=== PATIENT | male | born 1960 | race Caucasian/White ===

== ENCOUNTER 2016-05-12 06:13 | Emergency (ER) ==
[2016-05-12] MEDS ORDERED: ASPIRIN PO ONE ×2 (06:25→06:43)
[2016-05-12] MEDS ORDERED: ASPIRIN PO STA (06:26)
--- NOTE | 2016-05-12 06:31 | EKG Report ---
Test Performed on : 05/12/2016 06:21:20 AM Test Reason : CHEST PAIN Blood Pressure : / mmHG Vent. Rate : 090 BPM Atrial Rate : 090 BPM P-R Int : 172 ms QRS Dur : 072 ms QT Int : 374 ms P-R-T Axes : 077 092 080 degrees QTc Int : 457 ms Normal sinus rhythm. Rightward axis Nonspecific ST abnormality Abnormal ECG When compared with ECG of 04-JAN-2016 08:24, Vent. rate has increased BY [address] now depressed in Anterior leads QT has lengthened Unconfirmed Result
[2016-05-12] MEDS ORDERED: ZOFRAN IV ONE (06:43)
[2016-05-12] MEDS ORDERED: DILAUDID IV ONE ×2 (06:43→09:46)
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
[2016-05-12 07:12] LABS: MANUAL DIFF NEEDED? NO
[2016-05-12 07:13] LABS: BASO% 0.2 % (0.0-0.8); EOS# 0.01 X1000 (0.0-0.7); EOS% 0.1 % (0.0-10.0); HEMATOCRIT 39.3 % (42.0-52.0); HEMOGLOBIN 12.4 g/dL (14.0-18.0); IMM GRAN# 0.08 X1000 (0.0-0.04); IMM GRAN% 0.6 % (0.0-0.5); LYMPH# 1.39 X1000 (1.2-3.4); LYMPH% 10.8 % (20.5-51.1); MCH 24.4 PG (27-31); MCHC 31.6 g/dL (33-37); MCV 77.4 FL (81-99); MONO# 0.63 X1000 (0.11-0.59); MONO% 4.9 % (1.7-9.3); NEUT% 83.4 % (42.2-75.2); PLT 242 X1000 (130-400); RBC 5.08 XMIL (4.7-6.1)
[2016-05-12 07:21] LABS: INR 1.7 (0.86-1.15); PROTIME 20.2 Seconds (12.1-15.5)
[2016-05-12 07:41] LABS: AGAP 16; ALKALINE PHOSPHATASE 96 U/L (32-122); BUN 20 mg/dL (8-22); CALCIUM 9.2 mg/dL (8.8-10.2); CHLORIDE 97 mmol/L (98-107); CK PROFILE 53 U/L (24-204); COSMO 277; GOT 16 U/L (10-34); GPT 15 U/L (10-44); MAGNESIUM 1.9 mg/dL (1.5-2.7); POTASSIUM 4.1 mmol/L (3.5-5.1); SODIUM 135 mmol/L (136-145); TCO2 22 mmol/L (25-35); TOTAL PROTEIN 7.2 g/dL (6.3-8.3)
--- NOTE | 2016-05-12 07:47 | EKG Report ---
Test Performed on : 05/12/2016 06:41:12 AM Test Reason : chest pain Blood Pressure : / mmHG Vent. Rate : 079 BPM Atrial Rate : 079 BPM P-R Int : 158 ms QRS Dur : 092 ms QT Int : 366 ms P-R-T Axes : 000 139 140 degrees QTc Int : 419 ms Normal sinus rhythm. Left posterior fascicular block Cannot rule out Inferior infarct , age undetermined Abnormal ECG When compared with ECG of 12-MAY-2016 06:21, Left posterior fascicular block is now present ST no longer elevated in Inferior leads Inverted T waves have replaced nonspecific T wave abnormality in Anterior leads Unconfirmed Result
--- NOTE | 2016-05-12 08:23 | Diag Imaging Result Document ---
PROCEDURE NAME: CHEST-2 VIEWS - 05/12/2016 FRONTAL AND LATERAL CHEST, TWO VIEWS: COMPARISON: Compared to 05/28/2012. FINDINGS: The lungs are well expanded. The heart is not enlarged. The vessels are not distended. Minimal atelectasis in the mid left lung. No consolidation. No pleural effusions. No free air beneath the diaphragm. IMPRESSION: Minimal atelectasis in the mid left lung.
[2016-05-12] MEDS ORDERED: TORADOL IV ONE (08:38)
--- NOTE | 2016-05-12 09:05 | ED EKG INTERP ---
EKG Interpretation - EKG Time of EKG reading by physician:: 06:21 EKG Read and Signed by:: Arturo Miranda EKG Interpretation (*Must complete 3 of following elements*): Abnormal Rate: 90 Rhythm: nsr [place]: right ST Wave: non-specific ST changes - EKG # 2 Time of EKG reading by physician:: 06:41 EKG Read and Signed by:: Arturo Miranda EKG Interpretation (*Must complete 3 of following elements*): Abnormal (cannot rule out inferior infarct age undetermined) Rate: 79 Rhythm: nsr QRS: other (lafb) Attestation - Scribe Verification/Attestation Scribe:: Andre Souza Acting as Scribe for:: Arturo Miranda Scriblisa documention review:: This chart was documented by a scribe and accurately reflects the service the provider performed and the decisions made by the provider.
--- NOTE | 2016-05-12 09:09 | Diag Imaging Result Document ---
PROCEDURE NAME: ANGIOGRAM/PULMONARY ARTERIES - 05/12/2016 CT CHEST WITH INTRAVENOUS CONTRAST: FINDINGS: No pleural effusions. The heart is borderline mildly prominent. No thoracic aortic aneurysm or dissection. There are small mediastinal and hilar lymph nodes. No enlarged lymph nodes. Normal opacification of the pulmonary arteries and their major branches. There are mild emphysematous changes. No consolidation. No bronchiectasis. I do not identify a lung mass. Minimal basilar atelectasis. IMPRESSION: 1. No pulmonary emboli. 2. No pneumonia. 3. Mild cardiomegaly with coronary artery calcifications in the left anterior descending artery. A preliminary report was given at 8:46 a.m.
[2016-05-12] MEDS ORDERED: ZOFRAN ODT PO ONE (09:46)
[2016-05-12 09:59] VITALS: BP 128/75
== END 2016-05-12 09:58 | disposition home or self-care (01) ==
LOC: P.ED 06:13
DX: R07.89 Other chest pain (principal); G89.29 Other chronic pain; F41.9 Anxiety disorder, unspecified; I25.10 Atherosclerotic heart disease of native coronary artery without angina pectoris; I10 Essential (primary) hypertension; E78.5 Hyperlipidemia, unspecified; Z87.442 Personal history of urinary calculi; Z95.5 Presence of coronary angioplasty implant and graft; Z87.891 Personal history of nicotine dependence; R94.31 Abnormal electrocardiogram [ECG] [EKG]; Z79.899 Other long term (current) drug therapy; Z79.01 Long term (current) use of anticoagulants
CPT/HCPCS: 71020; 71275; 80053; 82550; 83735; 83880; 84484; 85025; 85379; 85610; 85730; 93005; 96374; 96375; 96376; J1170; J1885; J2405; Q9967

== ENCOUNTER 2018-09-18 02:30 | Inpatient (IN) ==
--- NOTE | 2018-09-13 14:57 | EKG Report ---
Test Performed on : 09/13/2018 2:29:25 PM Test Reason : PAT Blood Pressure : / mmHG Vent. Rate : 061 BPM Atrial Rate : 061 BPM P-R Int : 188 ms QRS Dur : 100 ms QT Int : 400 ms P-R-T Axes : 070 085 070 degrees QTc Int : 402 ms Normal sinus rhythm. Normal ECG When compared with ECG of 16-FEB-2017 09:13, No significant change was found Confirmed by Edmund Markham MD ([id number]) on 09/15/2018 9:02:08 PM
[2018-09-13 15:09] LABS: URINE SOURCE CLEAN CATCH
[2018-09-13 15:12] LABS: BILIRUBIN URINE NEGATIVE (NEGATIVE); BLOOD URINE NEGATIVE (NEGATIVE); COLOR YELLOW; GLUCOSE URINE >1000 mg/dL (NEGATIVE); KETONE URINE NEGATIVE (NEGATIVE); LEUKOCYTES URINE NEGATIVE (NEGATIVE); NITRITE URINE NEGATIVE (NEGATIVE); PH URINE 5.5; PROTEIN URINE NEGATIVE (NEGATIVE); SP GRAVITY URINE 1.037; TURBIDITY URINE CLEAR (CLEAR); UR EPITHELIAL CELLS <10 /HPF (<10); URINE BACTERIA NEGATIVE /HPF; URINE RBC <10 /HPF (<10); URINE WBC <10 /HPF (<10); UROBILINOGEN URINE NORMAL (NORMAL)
[2018-09-13 15:13] LABS: BASO# 0.05 X1000 (0.0-0.2); BASO% 0.6 % (0.0-0.8); EOS# 0.14 X1000 (0.0-0.7); EOS% 1.5 % (0.0-10.0); HEMATOCRIT 42.8 % (42.0-52.0); HEMOGLOBIN 14.5 g/dL (14.0-18.0); IMM GRAN# 0.13 X1000 (0.0-0.04); IMM GRAN% 1.4 % (0.0-0.5); LYMPH# 1.79 X1000 (1.2-3.4); LYMPH% 19.7 % (20.5-51.1); MCH 27.7 PG (27-31); MCHC 33.9 g/dL (33-37); MCV 81.7 FL (81-99); MONO# 0.92 X1000 (0.11-0.59); MONO% 10.1 % (1.7-9.3); MPV 12.9 FL (7.4-10.4); NEUT# 6.06 X1000 (1.4-6.5); NEUT% 66.7 % (42.2-75.2); PLT 179 X1000 (130-400); RBC 5.24 XMIL (4.7-6.1); RDW 17.1 % (11.5-14.5); WBC 9.09 X1000 (4.8-10.8)
[2018-09-13 15:28] LABS: INR 1.07; PROTIME 14.8 Seconds (11.0-16.0)
[2018-09-13 15:29] LABS: PTT 35.9 Seconds (22.3-41.8)
[2018-09-13 15:42] LABS: AGAP 12; BUN 14 mg/dL (8-22); CALCIUM 9.5 mg/dL (8.8-10.2); CHLORIDE 96 mmol/L (98-107); COSMO 288; CREATININE 0.8 mg/dL (0.7-1.2); ESTIMATED GFR > 60; GLUCOSE 387 mg/dL (70-104); POTASSIUM 4.5 mmol/L (3.5-5.1); SODIUM 136 mmol/L (136-145); TCO2 28 mmol/L (25-35)
[2018-09-18] MEDS ORDERED: COLACE ONE (06:56)
[2018-09-18] MEDS ORDERED: PEPCID ONE (06:56)
[2018-09-18] MEDS ORDERED: LR 1,000 ML ONE ×2 (06:57→11:13)
[2018-09-18] MEDS ORDERED: LYRICA ONE (06:57)
[2018-09-18] MEDS ORDERED: REGLAN ONE (06:57)
[2018-09-18] MEDS ORDERED: CELEBREX ONE (06:57)
[2018-09-18] MEDS ORDERED: KEFZOL 1 GM/D5W 2 GM/100 ML IVPB ONE (06:57)
[2018-09-18] MEDS ORDERED: SODIUM CHLORIDE 0.9% ONE (07:50)
[2018-09-18] MEDS ORDERED: DURAMORPH ONE (07:50)
[2018-09-18] MEDS ORDERED: MARCAINE 0.25% PF ONE (07:50)
[2018-09-18] MEDS ORDERED: CYKLOKAPRON 1,000 MG/NS 1,000 MG/100 ML IVPB ONE (07:50)
[2018-09-18] MEDS ORDERED: TORADOL ONE (07:50)
[2018-09-18] MEDS ORDERED: NEOSPORIN G.U. IRRIGANT ONE (07:51)
[2018-09-18] MEDS ORDERED: EXPAREL 1.3% ONE (07:51)
[2018-09-18] MEDS ORDERED: XYLOCAINE-MPF 2% ONE (07:52)
[2018-09-18] MEDS ORDERED: DIPRIVAN 1% ONE (07:52)
[2018-09-18] MEDS ORDERED: FENTANYL ONE (07:53)
[2018-09-18] MEDS ORDERED: PRECEDEX ONE (08:00)
[2018-09-18] MEDS ORDERED: BRIDION ONE (08:01)
[2018-09-18] MEDS ORDERED: HUMULIN R ONE ×2 (08:27→09:45)
[2018-09-18] MEDS ORDERED: ZOFRAN ONE (08:57)
[2018-09-18] MEDS ORDERED: ZEMURON ONE (08:57)
[2018-09-18] MEDS ORDERED: OFIRMEV 1000 MG/ISOTONIC SOLN 1,000 MG/100 ML BOTTLE ONE (08:57)
[2018-09-18] MEDS ORDERED: ROBINUL ONE (09:21)
[2018-09-18 09:44] LABS: URINE SOURCE CATH
[2018-09-18 09:47] LABS: BILIRUBIN URINE NEGATIVE (NEGATIVE); BLOOD URINE NEGATIVE (NEGATIVE); COLOR YELLOW; GLUCOSE URINE >1000 mg/dL (NEGATIVE); KETONE URINE NEGATIVE (NEGATIVE); LEUKOCYTES URINE NEGATIVE (NEGATIVE); NITRITE URINE NEGATIVE (NEGATIVE); PROTEIN URINE NEGATIVE (NEGATIVE); SP GRAVITY URINE 1.037; TURBIDITY URINE CLEAR (CLEAR); UROBILINOGEN URINE NORMAL (NORMAL)
[2018-09-18 09:49] LABS: UR EPITHELIAL CELLS <10 /HPF (<10); URINE BACTERIA NEGATIVE /HPF; URINE RBC <10 /HPF (<10); URINE WBC <10 /HPF (<10)
[2018-09-18] MEDS: HUMULIN R SUBQ ONE ×2 (10:46→11:54)
[2018-09-18] MEDS ORDERED: LR 500 ML ONE (10:49)
[2018-09-18] MEDS ORDERED: ZOFRAN ODT PO PRN (11:00)
[2018-09-18] MEDS ORDERED: ZOFRAN IV PRN (11:00)
[2018-09-18] MEDS ORDERED: OXY IR PO PRN (11:00)
[2018-09-18] MEDS ORDERED: DILAUDID IV PRN (11:00)
[2018-09-18] MEDS ORDERED: NS 1,000 ML ONE (11:04)
[2018-09-18] MEDS ORDERED: OXY IR ONE (11:22)
[2018-09-18] MEDS: ULTRAM PO SCH ×2 (12:00→18:06)
[2018-09-18] MEDS: NS 1,000 ML IV SCH (12:26)
[2018-09-18 12:29] LABS: HEMOGLOBIN A1C 11.3 % (4.8-6.0)
[2018-09-18] MEDS ORDERED: D50W SYRINGE IV PRN (13:00)
[2018-09-18 13:06] LABS: URINE SOURCE CATH
[2018-09-18 13:12] LABS: BILIRUBIN URINE NEGATIVE (NEGATIVE); BLOOD URINE NEGATIVE (NEGATIVE); COLOR YELLOW; GLUCOSE URINE 200 mg/dL (NEGATIVE); KETONE URINE TRACE mg/dL (NEGATIVE); LEUKOCYTES URINE NEGATIVE (NEGATIVE); NITRITE URINE NEGATIVE (NEGATIVE); PH URINE 5.5; PROTEIN URINE 70 mg/dL (NEGATIVE); SP GRAVITY URINE 1.049; TURBIDITY URINE CLEAR (CLEAR); UROBILINOGEN URINE 2 mg/dL (NORMAL)
[2018-09-18 13:24] LABS: UR EPITHELIAL CELLS <10 /HPF (<10); URINE BACTERIA NEGATIVE /HPF; URINE RBC <10 /HPF (<10); URINE WBC <10 /HPF (<10)
[2018-09-18 13:36] LABS: URINE YEAST NONE SEEN
[2018-09-18] MEDS ORDERED: VITAMIN D PO SCH (14:00)
[2018-09-18] MEDS ORDERED: DILAUDID PO PRN (14:00)
[2018-09-18] MEDS ORDERED: ROBAXIN PO PRN (14:00)
[2018-09-18] MEDS ORDERED: LIBRAX PO PRN (14:00)
--- NOTE | 2018-09-18 14:07 | OPERATIVE NOTE ---
PROCEDURE DATE: 09/18/2018 PREOPERATIVE DIAGNOSIS: Degenerative joint disease, right hip. POSTOPERATIVE DIAGNOSIS: Degenerative joint disease, right hip. PROCEDURE PERFORMED: Right anterior hip replacement. SURGEON: Juvenal Pardo MD. GANG KNIFE FISH CHOPPER: Kenji Arroyo. Mr. Arroyo was necessary for proper retraction and manipulation of the leg. ANESTHESIA: General. COMPLICATION: None. PROCEDURE IN DETAIL: A 57-year-old male presents for right anterior hip replacement. Risks, benefits, and no guarantees were discussed, and he is willing to proceed. He was taken the operating room and satisfactory anesthesia obtained. The right hip was prepped and draped in usual sterile fashion. A time-out was taken to confirm operative site, procedure, and patient. He was placed on the [place] table, and the right hip was approached with an incision starting 1 cm distal and lateral to the anterior superior iliac spine. This was carried down 10 cm. Dissection was carried down through the skin and subcutaneous fat to the fascia of the tensor fascia dereje. This was split in line with the incision and blunt dissection along the inner membrane of tensor undertaken to enter the anterior hip capsule. Cobra retractors were placed over the superior and inferior aspect of the femoral neck and a capsulotomy incision made to expose the joint. The C- arm was used to make an AP pelvis for referencing leg lengths prior to osteotomy of the femoral neck. Femoral neck osteotomy was made, and a corkscrew device was used to remove the femoral head. A very small Cobra retractor was carefully placed directly on the acetabular bone to protect the femoral nerve and neurovascular structures during reaming. Sequential reaming of the acetabulum was undertaken up to a 57 reamer. A DePuy 58 outer diameter [place] Duofix cup was impacted in the acetabulum in 45 degrees of abduction and 15 degrees of anteversion with secure press-fit fixation. A 25 length screw was placed in the 12 o'clock position of the cup for additional security, followed by a 36 mm inner diameter 0 degree polyethylene bearing. The bearing liner interface and liner bone interface was checked and noted to be stable. Traction was released off the leg and the hip extended and externally rotated to facilitate broaching of the proximal femur. Sequential broaching up to a size 6 DePuy Actis stem was undertaken with good axial and rotational stability. Standard neck with a 12 mm neck length reproduced the leg length and stability about the hip. The trial stem was removed and a standard neck size 6 active stem impacted in the proximal femur with secure axial and rotational stability. A 36 mm ceramic head with a +12 neck length was placed on this and the hip reduced. No posterior instability was noted with flexion of the hip up to 90 degrees in adduction. Anterior instability was tested by externally rotating the hip to 80 degrees and dropping it to the floor and hip extension without any anterior instability. The C-arm was used to verify accurate component position and geometry. The wound was copiously irrigated. The joint capsule and skin was injected with Exparel for pain management. A Hemovac drain was placed. The fascia of the tensor was closed with a running V-Loc suture, the subcutaneous with 2-0 Vicryl, and the skin with skin hilaria. Sterile dressings completed the closure, and the patient was recovered from anesthesia and transferred to the recovery room in stable condition. No intraoperative complications were noted. Instrument count and sponge count was correct at the time of closure. cc: Ángel Pardo MD
[2018-09-18] MEDS: OXY IR PO PRN ×2 (14:15→17:08)
[2018-09-18] MEDS: TYLENOL PO SCH (14:15)
[2018-09-18] MEDS ORDERED: CYKLOKAPRON 1,000 MG in NS 100 ML IV ONE (14:48)
[2018-09-18] MEDS: KEFZOL 2 GM/D5W 2 GM/50 ML IVPB IV SCH ×2 (15:09→16:23)
[2018-09-18] MEDS ORDERED: HUMULIN R SUBQ SCH ×3 (16:00→21:00)
--- NOTE | 2018-09-18 16:19 | ORTHOPAEDICS PROGRESS NOTE ---
DATE: 09/18/2018 SUBJECTIVE: Mr. Duran is seen status post total hip replacement. At the present time, he is afebrile with stable vital signs. There is no signs of active bleeding and his bandage is clean and dry. He has good femoral nerve function with extension of the knee as well as sciatic nerve function with flexion extension of the foot. PLAN: We will plan on mobilizing him later. He can be discharged home when he is mobilizing with his walker. cc: Ángel Pardo MD
[2018-09-18] MEDS: HUMULIN R SUBQ SCH (17:14)
--- NOTE | 2018-09-18 20:32 | CONSULTATION ---
DATE OF CONSULTATION: 09/18/2018 REASON FOR CONSULTATION: Medical management post hip surgery. HISTORY: This is one of several [facility] admissions for this 58-year-old white man who underwent right anterior hip arthroplasty by Dr. Pardo today due to degenerative joint disease. There is a history of other multiple joint arthropathies including shoulder pain, hip pain and knee pain. He has had arthroscopies and joint replacements including left hip anterior repair in 2016 and right knee replacement in 2018. He has had multiple areas of chronic pain including pain in his back and chest and has required narcotics on a regular basis, currently, Dilaudid 2 mg t.i.d. He is on Humira related to psoriasis and sees wax coating machine tender Dr. Brennan on a routine basis. He also was noted to have elevated blood sugar on admission of over 300 and an A1c of 11.3. He was placed on sliding scale regular insulin. CURRENT MEDICATIONS: Humira 40 mg as directed, amlodipine 10 mg, 1 daily, Librax 4 times a day, Plavix 75 mg once daily, vitamin D2 at 50,000 units once weekly, Dilaudid 2 mg every 3 hours p.r.n. pain, Florajen probiotics 1 daily, Robaxin 750 mg b.i.d., metoprolol 100 mg every morning, fish oil 1000 mg at bedtime, Protonix 40 mg 1 daily, Lyrica 150 mg b.i.d., ramipril 10 mg daily, Ranexa 500 mg daily, Xarelto 10 mg at bedtime, Crestor 20 mg daily at bedtime, Zanaflex 4 mg at bedtime and Maxzide 37.5/25 1 daily. ALLERGIES: Hydrocodone. REVIEW OF SYSTEMS: Significant for coronary artery disease. He had a stent several years ago. He has had several joint replacements as above and arthroscopies. Pain with walking had increased and Dr. Pardo scheduled an arthroplasty for today. Postoperatively he is doing well. He does not seem to be hurting much, but is on both p.o. Percocet, p.o. Dilaudid, and IV Dilaudid. IMPRESSION: Degenerative arthritis in the right hip post hip replacement, generalized osteoarthritis, psoriasis, probable psoriatic arthritis, diabetes ( uncontrolled), intermittent atypical chest pain, hypertension, dyspepsia, neuropathy of his legs. PLAN: Decrease pain medicine and continue only Dilaudid IV at this time. It is ordered 1 mg every 2 hours p.r.n. pain. Tresiba insulin 30 units at bedtime is added this evening, and sliding scale with moderate dose regular insulin is continued. Further recommendations will follow. He apparently will be able to go home after he is ambulating on a walker. cc: MD Ángel Saab MD
[2018-09-18] MEDS: COLACE PO SCH (20:35)
[2018-09-18] MEDS: CELEBREX PO SCH (20:35)
[2018-09-18] MEDS: LYRICA PO SCH (20:35)
[2018-09-18] MEDS: PERCOCET-5 PO PRN (20:36)
[2018-09-18] MEDS ORDERED: ZANAFLEX PO SCH (21:00)
[2018-09-18] MEDS ORDERED: TRESIBA FLEXTOUCH U-100 SUBQ SCH (21:00)
[2018-09-18] MEDS ORDERED: XARELTO PO SCH (21:00)
[2018-09-18] MEDS ORDERED: FISH OIL CONCENTRATE PO SCH (21:00)
[2018-09-18] MEDS ORDERED: INSULIN PEN NEEDLES ONE (21:25)
[2018-09-18] MEDS: PERIDEX MT SCH (21:27)
[2018-09-18] MEDS: DILAUDID IV PRN (21:28)
[2018-09-19] MEDS: KEFZOL 2 GM/D5W 2 GM/50 ML IVPB IV SCH (00:13)
[2018-09-19] MEDS: DILAUDID IV PRN ×3 (00:14→08:22)
[2018-09-19] MEDS: NS 1,000 ML IV SCH (00:14)
[2018-09-19] MEDS: HUMULIN R SUBQ SCH ×2 (00:24→07:08)
[2018-09-19] MEDS: PERCOCET-5 PO PRN ×2 (02:25→11:28)
[2018-09-19 06:34] LABS: HEMATOCRIT 35.1 % (42.0-52.0); HEMOGLOBIN 11.4 g/dL (14.0-18.0)
[2018-09-19 06:45] LABS: AGAP 10; BUN 12 mg/dL (8-22); CHLORIDE 102 mmol/L (98-107); COSMO 280; CREATININE 0.8 mg/dL (0.7-1.2); ESTIMATED GFR > 60; GLUCOSE 183 mg/dL (70-104); POTASSIUM 4.2 mmol/L (3.5-5.1); SODIUM 138 mmol/L (136-145); TCO2 26 mmol/L (25-35)
[2018-09-19] MEDS: TYLENOL PO SCH ×2 (07:08→08:12)
[2018-09-19] MEDS: ULTRAM PO SCH ×2 (07:09)
--- NOTE | 2018-09-19 07:57 | ORTHOPAEDICS PROGRESS NOTE ---
DATE: 09/19/2018 SUBJECTIVE DATA: Mr. Duran is seen on postop day 1 of his right total hip arthroplasty. He states that his hip is feeling better at this time. He also reports that he has not had any nausea throughout the night. OBJECTIVE DATA: The bandages are clean and dry. The patient is able to flex his quadriceps muscles without difficulty. He can do a straight leg raise. There is negative Homans sign. There are good pedal pulses. There is good capillary refill in the toes. Vital signs are stable. Her hemoglobin and hematocrit is 11.4 and 35.1. His current glucose is 183. ASSESSMENT: Degenerative joint disease of the right hip with total hip arthroplasty, diabetes mellitus type 2. PLAN: We will plan send Mr. Duran home today with home therapy. I have written him prescriptions for aspirin for DVT prophylaxis. I have also given him Bactrim for infection prevention as well as Zofran for nausea and Percocet for pain. He will need to follow up with his primary care physician to continue diabetes management at this time. We will follow up with him at our office in about 2 weeks to remove his hilaria. We will check back on him then. Dictated by FOX Whatley for Ángel Pardo MD cc: FOX Whatley MD
[2018-09-19] MEDS: CELEBREX PO SCH (08:23)
[2018-09-19] MEDS: PERIDEX MT SCH (08:24)
[2018-09-19] MEDS: COLACE PO SCH (08:25)
[2018-09-19] MEDS: LYRICA PO SCH (08:27)
[2018-09-19] MEDS ORDERED: PLAVIX PO SCH (09:00)
[2018-09-19] MEDS ORDERED: XARELTO PO SCH (09:00)
[2018-09-19] MEDS ORDERED: LOPRESSOR PO SCH (09:00)
[2018-09-19] MEDS ORDERED: RANEXA PO SCH (09:00)
[2018-09-19] MEDS ORDERED: PROTONIX PO SCH (09:00)
[2018-09-19] MEDS ORDERED: PEPCID PO SCH (09:00)
[2018-09-19] MEDS ORDERED: NORVASC PO SCH (09:00)
[2018-09-19] MEDS ORDERED: CRESTOR PO SCH (09:00)
[2018-09-19] MEDS ORDERED: LACTINEX PO SCH (09:00)
[2018-09-19] MEDS ORDERED: DYAZIDE PO SCH (09:00)
[2018-09-19] MEDS ORDERED: ALTACE PO SCH (09:00)
--- NOTE | 2018-09-19 09:29 | PROGRESS NOTE ---
DATE: 09/19/2018 SUBJECTIVE: Vital signs stable with temperature 97.5 degrees, heart rate 62, respirations 18, blood pressure 139/76, O2 saturation on room air 94%. The patient is 1 day postop right hip arthroplasty. He is doing very well and has minimal pain shortly after receiving some pain medicine. Plans are for discharge this afternoon. He is instructed in administering insulin and is given a prescription for both a Glucometer and strips, also Tresiba pens to use 40 units at bedtime. He is to return to my office for followup in 1 week unless he is having too much difficulty ambulating. In that case, he would call and adjustments would be made to his insulin dose if needed, and he would be seen in 2 weeks. Hematocrit this morning had dropped from 42.8 to 35.1. This will be followed as an outpatient. There has been no drainage on his dressing, and blood loss was not unusual during surgery. cc: MD Ángel Saab MD
[2018-09-19 15:55] VITALS: BP 127/70
[2018-10-01] MEDS ORDERED: PATIENT'S OWN MED INJ SCH (14:00)
== END 2018-09-19 12:02 | disposition home health service (06) | DRG 470 ==
LOC: SURHOLD 02:30 → 4N 08:57
PROVIDERS: ADMIT Orthopaedic Surgery Adult Reconstructive Orthopaedic Surgery; ATTEND Orthopaedic Surgery Adult Reconstructive Orthopaedic Surgery
CPT/HCPCS: 76000; 80048; 81001; 82948; 83036; 85014; 85018; 85025; 85610; 85730; 86850; 86900; 86901; 88304; 88311; 93005; 93010; 94761; 97110; 97162; 97530; A9270; C9290; J0131; J0690; J1170; J1885; J2274; J2275; J2405; J3010; J7030; J7120; Q9974; S0020; XXXXX

== ENCOUNTER 2019-01-01 10:51 | Day surgery (SDC) ==
[2018-12-26 08:52] LABS: URINE SOURCE CLEAN CATCH
[2018-12-26 08:55] LABS: BASO# 0.06 X1000 (0.0-0.2); BASO% 0.5 % (0.0-0.8); BILIRUBIN URINE NEGATIVE (NEGATIVE); BLOOD URINE NEGATIVE (NEGATIVE); COLOR YELLOW; EOS% 2.7 % (0.0-10.0); GLUCOSE URINE NEGATIVE (NEGATIVE); HEMOGLOBIN 14.2 g/dL (14.0-18.0); IMM GRAN# 0.11 X1000 (0.0-0.04); KETONE URINE NEGATIVE (NEGATIVE); LEUKOCYTES URINE NEGATIVE (NEGATIVE); LYMPH# 2.19 X1000 (1.2-3.4); LYMPH% 19.9 % (20.5-51.1); MCHC 31.6 g/dL (33-37); MCV 85.7 FL (81-99); MONO% 8.2 % (1.7-9.3); NEUT# 7.47 X1000 (1.4-6.5); NEUT% 67.7 % (42.2-75.2); NITRITE URINE NEGATIVE (NEGATIVE); PLT 244 X1000 (130-400); PROTEIN URINE TRACE mg/dL (NEGATIVE); RBC 5.25 XMIL (4.7-6.1); RDW 15.2 % (11.5-14.5); SP GRAVITY URINE 1.023; TURBIDITY URINE CLEAR (CLEAR); UR EPITHELIAL CELLS <10 /HPF (<10); URINE BACTERIA NEGATIVE /HPF; URINE RBC <10 /HPF (<10); URINE WBC <10 /HPF (<10); UROBILINOGEN URINE 2 mg/dL (NORMAL); WBC 11.03 X1000 (4.8-10.8)
[2018-12-26 09:09] LABS: INR 1.09; PROTIME 14.2 Seconds (11.0-16.0)
[2018-12-26 09:10] LABS: PTT 32.4 Seconds (22.3-41.8)
[2018-12-26 09:13] LABS: HEMOGLOBIN A1C 7.8 % (4.8-6.0)
[2018-12-26 09:19] LABS: AGAP 8; BUN 16 mg/dL (8-22); CHLORIDE 98 mmol/L (98-107); COSMO 275; CREATININE 0.9 mg/dL (0.7-1.2); ESTIMATED GFR > 60; GLUCOSE 191 mg/dL (70-104); POTASSIUM 4.3 mmol/L (3.5-5.1); SODIUM 134 mmol/L (136-145); TCO2 28 mmol/L (25-35)
[2019-01-01] MEDS ORDERED: LYRICA ONE (11:13)
[2019-01-01] MEDS ORDERED: COLACE ONE (11:13)
[2019-01-01] MEDS ORDERED: LR 1,000 ML ONE (11:13)
[2019-01-01] MEDS ORDERED: REGLAN ONE (11:13)
[2019-01-01] MEDS ORDERED: PEPCID ONE (11:13)
[2019-01-01] MEDS ORDERED: KEFZOL 1 GM/D5W 2 GM/100 ML IVPB ONE (11:13)
[2019-01-01] MEDS ORDERED: CELEBREX ONE (11:13)
[2019-01-01] MEDS ORDERED: DIPRIVAN 1% 500 MG/50 ML BOTTLE ONE (12:15)
[2019-01-01] MEDS ORDERED: TORADOL ONE (12:17)
[2019-01-01] MEDS ORDERED: DURAMORPH ONE (12:17)
[2019-01-01] MEDS ORDERED: MARCAINE 0.25% PF ONE (12:17)
[2019-01-01] MEDS ORDERED: EXPAREL 1.3% ONE (12:18)
[2019-01-01] MEDS ORDERED: SODIUM CHLORIDE 0.9% ONE (12:18)
[2019-01-01] MEDS ORDERED: CYKLOKAPRON 1,000 MG/NS 1,000 MG/100 ML IVPB ONE ×2 (12:18→13:36)
[2019-01-01] MEDS ORDERED: VANCOMYCIN ONE (12:18)
[2019-01-01] MEDS ORDERED: VERSED ONE (12:36)
[2019-01-01] MEDS ORDERED: FENTANYL ONE (12:36)
[2019-01-01 13:40] LABS: URINE SOURCE CATH
[2019-01-01] MEDS ORDERED: ZOFRAN ONE ×2 (13:44→14:27)
[2019-01-01] MEDS ORDERED: DECADRON ONE ×2 (13:44→14:27)
[2019-01-01 13:45] LABS: BILIRUBIN URINE NEGATIVE (NEGATIVE); BLOOD URINE NEGATIVE (NEGATIVE); COLOR YELLOW; GLUCOSE URINE NEGATIVE (NEGATIVE); KETONE URINE NEGATIVE (NEGATIVE); LEUKOCYTES URINE NEGATIVE (NEGATIVE); NITRITE URINE NEGATIVE (NEGATIVE); PH URINE 6.5; PROTEIN URINE 30 mg/dL (NEGATIVE); SP GRAVITY URINE 1.025; TURBIDITY URINE CLEAR (CLEAR); UROBILINOGEN URINE NORMAL (NORMAL)
[2019-01-01 13:47] LABS: UR EPITHELIAL CELLS <10 /HPF (<10); URINE BACTERIA NEGATIVE /HPF; URINE RBC <10 /HPF (<10); URINE WBC <10 /HPF (<10)
[2019-01-01] MEDS ORDERED: DIPRIVAN 1% ONE (13:47)
[2019-01-01] MEDS ORDERED: OFIRMEV 1000 MG/ISOTONIC SOLN 1,000 MG/100 ML BOTTLE ONE (14:20)
--- NOTE | 2019-01-01 14:34 | OPERATIVE NOTE ---
PROCEDURE DATE: 01/01/2019 PREOPERATIVE DIAGNOSIS: Degenerative joint disease, left knee. POSTOPERATIVE DIAGNOSIS: Degenerative joint disease, left knee. PROCEDURE PERFORMED: Left total knee replacement. SURGEON: Ángel Pardo MD. [employer] WORKER: FOX Whatley. Mr. Arroyo was necessary for proper retraction and manipulation of the leg. ANESTHESIA: Spinal. COMPLICATIONS: None. PROCEDURE IN DETAIL: This 58-year-old male presents for a left total knee replacement. Risks, benefits, and no guarantees were discussed, and he is willing to proceed. He was taken to the operating room and satisfactory anesthesia obtained. The left leg was prepped and draped in the usual sterile fashion. A time-out was taken to confirm operative site, procedure, and patient. The leg was wrapped with an Esmarch and tourniquet inflated to 300 mmHg. A midline incision was made over the front of the knee, followed by a quad tendon sparing arthrotomy. The patella was everted and resurfaced with freehand technique. The patella was subluxed laterally and the knee flexed. An intramedullary hole was made in the distal femur. Distal femoral cutting block was secured in 5 degrees of valgus. Distal femoral resection was made and the femur sized to a size 7 femoral implant. The four-in-one block was secured, and the anterior, posterior, and chamfer cuts sequentially made. A notch was created for posterior stabilized design using provided notch guide. Any remaining osteophytes were debrided from the femur. The knee was flexed and a PCL retractor placed behind the tibia to protect the neurovascular bundle. The tibial cutting block was secured and the tibial resection made. Flexion and extension gaps were equal with a 5 mm spacer. Tibia was sized to a size 8 tibial tray. Trial reduction was performed with a 5 mm poly with good range of motion and stability. Lateral tracking of the patella was noted and a lateral release with electrocautery performed with midline tracking. The patella was sized to a 41 medialized dome patella. The trial components were removed after final prep and all bony surfaces thoroughly irrigated with pulsatile lavage. Cement with a gram of vancomycin was utilized to cement a DePuy size 8 rotating platform tibial baseplate, a size 7 left posterior stabilized femoral component, and a 41 medialized dome patella. Excess cement was removed with a Grethel elevator. While the cement cured, the joint capsule was injected with Exparel and a Hemovac drain placed. The arthrotomy was then copiously irrigated with irrigant. A size 7, 5 mm posterior stabilized rotating platform bearing was placed into the tibial tray and the knee reduced. Final range of motion was 0 to 130 degrees with midline patellar tracking. The arthrotomy was closed over the drain with #1 Vicryl in the arthrotomy, 2-0 Vicryl in the subcutaneous, and skin hilaria on the skin edges. Sterile dressings completed the closure. The patient was recovered from anesthesia and transferred to the recovery room in stable condition. No intraoperative complications were noted. Instrument count and sponge count were correct at the time of closure. cc: Ángel Pardo MD
[2019-01-01] MEDS ORDERED: NS 1,000 ML ONE (14:55)
--- NOTE | 2019-01-01 15:13 | Diag Imaging Result Doc PS360 ---
KNEE 1-2 VIEWS-LEFT - 01/01/2019 INDICATION: Left total knee TECHNIQUE: Two views COMPARISON: 11/24/2018 FINDINGS: There has been left total knee arthroplasty with patellar resurfacing. Alignment is anatomic. No hardware fracture or loosening. IMPRESSION: No complication. Electronically signed by Jordin Snell 01/01/2019 3:11 PM
[2019-01-01] MEDS ORDERED: OXY IR PO PRN (16:45)
[2019-01-01] MEDS ORDERED: ZOFRAN IV PRN (16:45)
[2019-01-01] MEDS ORDERED: MORPHINE IV PRN ×2 (16:45)
[2019-01-01] MEDS ORDERED: ZOFRAN ODT PO PRN (16:45)
--- NOTE | 2019-01-01 20:06 | ORTHOPAEDICS PROGRESS NOTE ---
DATE: 01/01/2019 SUBJECTIVE: Mr. Duran is seen status post total knee replacement. OBJECTIVE: At the present time he is afebrile with stable vital signs. He is resting comfortably. We will plan on mobilizing him later this afternoon. X-rays look good of the knee replacement. There are no signs of motor sensory deficits. He has good capillary refill. PLAN: We will plan on discontinuing lines and mobilizing, discharging home when he is up with therapy. cc: Ángel Pardo MD
[2019-01-01] MEDS: PERIDEX MT SCH (20:55)
[2019-01-01] MEDS: CELEBREX PO SCH (20:55)
[2019-01-01] MEDS: LYRICA PO SCH (20:57)
[2019-01-01] MEDS: ZANTAC PO SCH (20:57)
[2019-01-01] MEDS: COLACE PO SCH (20:57)
[2019-01-01] MEDS: TYLENOL PO SCH (20:58)
[2019-01-01] MEDS: KEFZOL 2 GM/D5W 2 GM/50 ML IVPB IV SCH (20:59)
[2019-01-01] MEDS ORDERED: CULTURELLE PO SCH (21:00)
[2019-01-01] MEDS ORDERED: ELAVIL PO SCH (21:00)
[2019-01-01] MEDS ORDERED: CRESTOR PO SCH (21:00)
[2019-01-01] MEDS ORDERED: FISH OIL CONCENTRATE PO SCH (21:00)
[2019-01-01] MEDS ORDERED: REMERON PO SCH (21:00)
[2019-01-01] MEDS ORDERED: DYAZIDE PO SCH (21:00)
[2019-01-01] MEDS ORDERED: TRESIBA FLEXTOUCH U-200 SUBQ SCH (21:00)
[2019-01-01] MEDS: ULTRAM PO SCH (22:07)
[2019-01-01] MEDS ORDERED: INSULIN PEN NEEDLES ONE (22:11)
[2019-01-01] MEDS: OXY IR PO PRN (23:23)
[2019-01-02] MEDS: MORPHINE IV PRN ×6 (00:44→13:47)
[2019-01-02] MEDS: OXY IR PO PRN ×4 (02:12→12:15)
[2019-01-02] MEDS: TYLENOL PO SCH ×2 (03:02→08:18)
[2019-01-02] MEDS: ULTRAM PO SCH ×2 (03:03→08:19)
[2019-01-02] MEDS: KEFZOL 2 GM/D5W 2 GM/50 ML IVPB IV SCH (05:41)
[2019-01-02 07:03] LABS: AGAP 17; BUN 17 mg/dL (8-22); CALCIUM 8.8 mg/dL (8.8-10.2); CHLORIDE 96 mmol/L (98-107); COSMO 286; CREATININE 0.9 mg/dL (0.7-1.2); ESTIMATED GFR > 60; GLUCOSE 385 mg/dL (70-104); HEMATOCRIT 39.9 % (42.0-52.0); HEMOGLOBIN 12.8 g/dL (14.0-18.0); POTASSIUM 4.3 mmol/L (3.5-5.1); SODIUM 134 mmol/L (136-145); TCO2 21 mmol/L (25-35)
[2019-01-02] MEDS ORDERED: HUMALOG SUBQ ONE (07:55)
[2019-01-02 07:59] VITALS: BP 159/85
[2019-01-02] MEDS ORDERED: PLAVIX PO SCH (09:00)
[2019-01-02] MEDS ORDERED: NORVASC PO SCH (09:00)
[2019-01-02] MEDS ORDERED: TOPROL XL PO SCH (09:00)
[2019-01-02] MEDS ORDERED: PEPCID PO SCH (09:00)
[2019-01-02] MEDS: LYRICA PO SCH (09:33)
[2019-01-02] MEDS: CELEBREX PO SCH (09:34)
[2019-01-02] MEDS: ZANTAC PO SCH (09:34)
[2019-01-02] MEDS: COLACE PO SCH (09:35)
[2019-01-02] MEDS: PERIDEX MT SCH (09:36)
[2019-01-02] MEDS ORDERED: HUMALOG SUBQ SCH (11:00)
--- NOTE | 2019-01-02 12:19 | CONSULTATION ---
DATE OF CONSULTATION: 01/02/2019 DIAGNOSES: 1. Uncontrolled diabetes. 2. Osteoarthritis of knees with left total knee replacement by Dr. Pardo yesterday. 3. He has coronary artery disease, and frequent atypical chest pain. 4. The patient had elevated blood sugar yesterday and this morning, 373 to 391. A1c on 12/26/2018 was 7.8. He has had relatively poor sugar control based on noncompliance with diet. CURRENT MEDICATIONS: At home he was using Tresiba insulin 50 units at bedtime. In the hospital this morning, he has been placed on a protocol with sliding scale Humalog. He is given an additional dose now of 15 units Humalog. Sugar will be checked q.i.d. He is currently on a diabetic diet. PHYSICAL EXAMINATION: Vital signs: Temperature 97.8 degrees, heart rate 83, respirations 20, blood pressure 159/85, O2 saturation on room air 92%. He rates pain at a level 7. HEENT: He wears glasses. Tympanic membranes without inflammation. Pharynx benign. Chest: Clear with no rales or rhonchi. Heart: Regular in rate and rhythm with no murmur, rub or gallop. Extremities: There is a wrap over his left knee secondary to recent surgery. IMPRESSION: 1. Osteoarthritis of knees with total left knee arthroplasty this hospitalization by Dr. Pardo. 2. He has poorly controlled diabetes. 3. Hypertension. 4. History of coronary artery disease. PLAN: Will follow and add sliding scale insulin to help control sugars. cc: Rob Waters MD
--- NOTE | 2019-01-02 19:27 | ORTHOPAEDICS PROGRESS NOTE ---
DATE: 01/02/2019 SUBJECTIVE DATA: Mr. Duran reports he is feeling better today since he has had his left total knee arthroplasty. He is seen postop day 1 of his left total knee arthroplasty. He states that he has been up walking with physical therapy without much difficulty. He states his pain is 4/10 at this time. He denies nausea, vomiting, or any other problems. He reports his blood sugar is improving. OBJECTIVE DATA: Current glucose is 268 at 10:47 today. There is good sensation to the left lower extremity. The bandages are clean and dry. There is negative Homans sign. There are good pedal pulses. There is good sensation. There is good capillary refill in the toes. ASSESSMENT: 1. Hyperglycemia with diabetes. 2. Degenerative joint disease of the left knee with left total knee arthroplasty. PLAN: We will plan to hopefully get Mr. Duran home this afternoon if his blood sugar is 200 or below. If it does not go below 200, then we will just keep him in the hospital overnight for observation. We will continue to give him insulin and check his blood sugars. We will check back on him later and see how he is doing. We will go ahead and set up discharge preparations. Dictated by FOX Whatley for Ángel Pardo MD cc: FOX Whatley MD Robert Allen, MD
[2019-01-02] MEDS ORDERED: XARELTO PO SCH (21:00)
[2019-01-07] MEDS ORDERED: VITAMIN D PO SCH (09:00)
[2019-01-07] MEDS ORDERED: PATIENT'S OWN MED SUBQ SCH (09:00)
== END 2019-01-02 16:13 | disposition home health service (06) ==
LOC: PAT 10:51 → 4N 10:51 → PAT 01-02 16:13
PROVIDERS: ATTEND Orthopaedic Surgery Adult Reconstructive Orthopaedic Surgery